=== PATIENT | female | born 1985 | race Caucasian/White ===

== ENCOUNTER 2022-11-13 02:18 | Emergency (ER) | payer BC ==
[2022-11-13 02:34] VITALS: BP 153/105; PULSE 93
== END 2022-11-13 02:46 | disposition home or self-care (01) ==
LOC: MW.ED 02:18
DX: M25.521 Pain in right elbow (principal); Z91.013 Allergy to seafood
CPT/HCPCS: 73080-26-RT; 73080-RT; 99283

== ENCOUNTER 2025-01-06 21:30 | Emergency (ER) | payer SELFPAY ==
[2025-01-06 21:55] LABS: BASOPHILS ABSOLUTE AUTO 0.03 K/uL (0.00-0.20); BASOPHILS PERCENT AUTO 0.2 % (0.0-1.0); EOSINOPHILS ABSOLUTE AUTO 0.31 K/uL (0.00-0.45); EOSINOPHILS PERCENT AUTO 2.3 % (0.0-6.0); IMMATURE GRAN ABSOLUTE AUTO 0.04 K/uL (0.00-0.05); IMMATURE GRAN PERCENT AUTO 0.3 % (0.0-0.4); LYMPHOCYTES ABSOLUTE AUTO 2.28 K/uL (1.00-4.80); LYMPHOCYTES PERCENT AUTO 17.0 % (24.0-44.0); MEAN PLATELET VOLUME 10.5 fL (9.4-12.3); MONOCYTES ABSOLUTE AUTO 0.55 K/uL (0.00-0.80); MONOCYTES PERCENT AUTO 4.1 % (0.0-8.0); NEUTROPHILS ABSOLUTE AUTO 10.20 K/uL (1.80-7.70); NEUTROPHILS PERCENT AUTO 76.1 % (41.0-71.0); NRBC ABSOLUTE 0.00 K/uL (0.00-0.02); NRBC PERCENT 0.0 /100WBC (0.0-0.2); PLATELET COUNT,PLT 326 K/uL (150-400); RED BLOOD CELL COUNT 4.95 M/uL (4.10-5.30); WHITE BLOOD CELL COUNT,WBC 13.41 K/uL (3.9-11.3)
[2025-01-06 22:21] LABS: APPEARANCE,URINE CLEAR; GLUCOSE,URINE NEGATIVE (NEGATIVE); OCCULT BLOOD,URINE TRACE-LYSED (NEGATIVE)
[2025-01-06 22:24] LABS: EPITHELIAL CELLS,URINE RARE (NONE-FEW)
[2025-01-06] MEDS: Iopamidol 755 MG/ML 500 ML Multipack Bottle IVPUSH STA (22:36)
[2025-01-06 22:39] LABS: INR 1.04 (0.86-1.11)
[2025-01-06 22:43] LABS: A/G RATIO 1.1 (0.9-1.6); ALANINE AMINOTRANSFERASE,ALT 28.0 IU/L (14-63); ASPARTATE AMNIOTRANSFERASE,AST 22.0 IU/L (15-37); BILIRUBIN TOTAL 0.3 mg/dL (0.2-1.0); BLOOD UREA NITROGEN,BUN 9.0 mg/dL (7.0-18.0); CARBON DIOXIDE,CO2 25.9 mmol/L (21.0-32.0); CHLORIDE,CL 104.0 mmol/L (98-107); CREATININE 1.0 mg/dL (0.6-1.0); EST CRCL DRUG DOSING (CG) 73.45 mL/min; ESTIMATED GFR 73.0 mL/min (>60); GLUCOSE RANDOM 91.0 mg/dL (74-106); POTASSIUM,K 3.8 mmol/L (3.5-5.1); PROTEIN TOTAL,TP 7.7 g/dL (6.4-8.2); SODIUM,NA 140.0 mmol/L (136-145)
[2025-01-06] MEDS: Ketorolac 30 MG/ML SDV IVPUSH ONE (23:33)
[2025-01-06] MEDS: Ondansetron 4 MG/2 ML SDV IVPUSH ONE (23:37)
[2025-01-07 00:27] VITALS: BP 112/82; PULSE 74
== END 2025-01-07 00:34 | disposition home or self-care (01) ==
LOC: MW.ED 21:30
DX: N93.9 Abnormal uterine and vaginal bleeding, unspecified (principal); K52.9 Noninfective gastroenteritis and colitis, unspecified; K92.1 Melena; Z97.5 Presence of (intrauterine) contraceptive device; Z91.013 Allergy to seafood; Z79.899 Other long term (current) drug therapy
CPT/HCPCS: 36415; 74177; 80053; 81001; 83690; 84703; 85025; 85610; 85652; 86140; 96361; 96374; 99284; A9270; J1885; J7030; Q9967; 99283

== ENCOUNTER 2025-05-22 21:46 | Emergency (ER) | payer SELFPAY ==
[2025-05-22] MEDS: Ondansetron 4 MG/2 ML SDV IVPUSH ONE (22:13)
[2025-05-22] MEDS: Magnesium Sulfate 2 GM/50 mL 2 GM in Premix Bag 1 BAG IV ONE (22:45)
[2025-05-22] MEDS: diphenhydrAMINE 50 MG/ML SDV IVPUSH ONE (22:45)
[2025-05-22] MEDS: Dexamethasone Sod Phos Preservative Free 10 MG/ML Vial IVPUSH ONE (22:45)
[2025-05-22] MEDS: Ketorolac 30 MG/ML SDV IVPUSH ONE (22:45)
[2025-05-23 00:53] VITALS: BP 123/84; PULSE 66
== END 2025-05-23 00:53 | disposition home or self-care (01) ==
LOC: MW.ED 21:46
DX: G43.909 Migraine, unspecified, not intractable, without status migrainosus (principal); E86.0 Dehydration; F17.200 Nicotine dependence, unspecified, uncomplicated; Z91.013 Allergy to seafood; Z79.899 Other long term (current) drug therapy
CPT/HCPCS: 96365; 96375; 99283; J1100; J1200; J1885; J2405; J2765; J3475; J7030